=== PATIENT | female | born 1985 | race Hispanic/Latino ===

== ENCOUNTER 2020-05-05 06:14 | Emergency (ER) | payer OTHER ==
[2020-05-05] MEDS ORDERED: IBUPROFEN 200 MG TAB ONE (06:34)
[2020-05-05] MEDS ORDERED: ACETAMINOPHEN EXTRA STRENGTH 500 MG TABLET ONE (06:34)
[2020-05-05] MEDS ORDERED: CYCLOBENZAPRINE HCL 10 MG TABLET ONE (06:35)
== END 2020-05-05 07:36 | disposition home or self-care (01) ==
LOC: EDH 06:14
DX: S70.02XA Contusion of left hip, initial encounter (principal); E11.9 Type 2 diabetes mellitus without complications; Z72.0 Tobacco use; W06.XXXA Fall from bed, initial encounter; Y93.89 Activity, other specified; Y92.89 Other specified places as the place of occurrence of the external cause; Y99.8 Other external cause status
CPT/HCPCS: 73502

== ENCOUNTER 2020-07-07 03:35 | Emergency (ER) | payer OTHER ==
[2020-07-07] MEDS ORDERED: CLINDAMYCIN 900 MG/D5% WATER 50 ML IV ONE (04:05)
[2020-07-07] MEDS ORDERED: LIDOCAINE HCL 2% JELLY 5 ML ONE (04:06)
[2020-07-07] MEDS ORDERED: KETOROLAC TROMETHAMINE 30MG/ML ONE (04:06)
== END 2020-07-07 05:01 ==
LOC: EDH 03:35
DX: K13.79 Other lesions of oral mucosa (principal); K13.0 Diseases of lips
CPT/HCPCS: 96374; 96375; 99284; J1885; J3490

== ENCOUNTER 2020-07-07 22:56 | Emergency (ER) | payer OTHER ==
[2020-07-07] MEDS ORDERED: CEFTRIAXONE SODIUM 2 GM VIAL ONE (23:17)
[2020-07-07] MEDS ORDERED: CLINDAMYCIN 900 MG/D5% WATER 50 ML IV ONE (23:17)
[2020-07-07] MEDS ORDERED: KETOROLAC TROMETHAMINE 30MG/ML ONE (23:43)
[2020-07-07] MEDS ORDERED: ONDANSETRON HCL 4 MG/2 ML VIAL ONE (23:43)
[2020-07-08 00:03] LABS: BASOPHILS % (AUTO) 0.3 % (0.0-5.0); EOSINOPHILS % (AUTO) 0.2 % (0.0-8.0); HEMATOCRIT 35.5 % (36-48); LYMPHOCYTES % (AUTO) 11.7 % (21.0-51.0); MEAN CORPUSCULAR HEMOGLOBIN 29.3 pg (27.0-33.0); MEAN CORPUSCULAR HGB CONC 33.5 g/dL (32.0-36.0); MEAN CORPUSCULAR VOLUME 87.4 fL (79-99); NEUTROPHILS % (AUTO) 78.5 % (40.0-77.0); PLATELET COUNT (AUTO) 298 K/uL (130-400); RED BLOOD CELL COUNT(AUTO) 4.06 MIL/uL (4.00-5.50); RED CELL DISTRIBUTION WIDTH 11.9 % (11.0-15.5); WHITE BLOOD COUNT (AUTO) 14.4 K/uL (4.8-10.8)
[2020-07-08] MEDS ORDERED: SODIUM CHLORIDE 0.9% 250 ML IV ONE (00:06)
[2020-07-08] MEDS ORDERED: METOCLOPRAMIDE 10 MG/2 ML VIAL ONE (00:07)
[2020-07-08 00:12] LABS: CREATININE 0.7 mg/dL (0.5-1.5); POTASSIUM 3.8 mmol/L (3.5-5.1)
[2020-07-08] MEDS ORDERED: LIDOCAINE HCL 2% VISCOUS 15 ML UDCUP ONE (00:14)
== END 2020-07-08 01:13 ==
LOC: EDH 22:56
DX: K13.0 Diseases of lips (principal); I10 Essential (primary) hypertension; E11.9 Type 2 diabetes mellitus without complications
CPT/HCPCS: 36415; 80048; 85025; 96365; 96375; 99284; J0696; J1885; J2405; J2765; J3490; J7050